=== PATIENT | male | born 1995 | race Caucasian/White ===

== ENCOUNTER → 2018-02-25 | Outpatient (CLI) | payer OTHER ==
[~2018-02-25] VITALS: Ht 177.8 cm; Wt 95.5 kg
[~2018-02-25] MED LIST: NEXIUM 24HR20 M2 PO; PROAIR HFA0.09 MG/AC IH
[2018-02-25 10:00] VITALS: BP 155/58
== END ==
LOC: AMSURD 09:45
DX: R00.2 Palpitations (principal)

== ENCOUNTER → 2020-02-22 | Outpatient (CLI) | payer SELFPAY ==
[2018-02-25 10:00] VITALS: BP 155/58
== END ==
LOC: LAB 09:50
DX: M79.10 Myalgia, unspecified site (principal); R51 Headache; R11.0 Nausea; R19.7 Diarrhea, unspecified; Z20.828 Contact with and (suspected) exposure to other viral communicable diseases

== ENCOUNTER → 2020-02-25 | Outpatient (CLI) | payer SELFPAY ==
[2018-02-25 10:00] VITALS: BP 155/58
== END ==
LOC: LAB 15:47
DX: R19.7 Diarrhea, unspecified (principal)

== ENCOUNTER → 2023-11-11 | Outpatient (CLI) | payer BC ==
[2023-11-11 11:01] LABS: ALBUMIN 4.7 g/dL (3.5-5.0); SODIUM 139 mmol/L (136-145)
[2023-11-11 11:03] LABS: CALCIUM 10.6 mg/dL (8.3-10.5)
[2023-11-11 11:04] LABS: GLUCOSE 119 mg/dL (75-110); TOTAL PROTEIN 8.1 g/dL (6.4-8.3)
[2023-11-11 11:05] LABS: CARBON DIOXIDE 26 mmol/L (22-29)
[2023-11-11 11:06] LABS: TOTAL BILIRUBIN 0.6 mg/dL (0.2-1.2)
[2023-11-11 11:09] LABS: AST-SGOT 190 U/L (5-34)
[2023-11-11 11:10] LABS: ALT/SGPT 204 U/L (0-55)
[2023-11-11 11:29] LABS: TROPONIN-I < 0.030 ng/mL (0.00-0.033)
[2023-11-11 11:41] LABS: BASO # 0.07 K/mm3 (0.02-0.10); EOS # 0.47 K/mm3 (0.04-0.40); HEMATOCRIT 47.1 % (42.0-52.0); HEMOGLOBIN 15.2 g/dL (13.5-18.0); LYMPH# 3.21 K/mm3 (1.50-4.00); MEAN CELL VOLUME 95 fl (78-100); MEAN CORPUSCULAR HEMOGLOBIN 31 pg (27-31); MEAN CORPUSCULAR HGB CONC 32 g/dL (33-37); MEAN PLATELET VOLUME 10.6 fl (7.4-10.4); MONO # 1.09 K/mm3 (0.20-0.80); NEU # 6.83 K/mm3 (1.40-6.50); PLATELET COUNT 356 K/mm3 (130-400); RED BLOOD COUNT 4.96 M/mm3 (4.20-5.60); RED CELL DISTRIBUTION WIDTH 13.6 % (11.5-14.5); WHITE BLOOD COUNT 11.8 K/mm3 (4.8-10.8)
[2023-12-16 16:35] LABS: DIRECT BILIRUBIN 0.3 mg/dL (0.0-0.5)
== END ==
LOC: LAB 10:31
PROVIDERS: Nurse Practitioner Family
DX: Z13.1 Encounter for screening for diabetes mellitus (principal); R00.2 Palpitations; R74.01 Elevation of levels of liver transaminase levels

== ENCOUNTER → 2023-12-11 | Outpatient (CLI) | payer BC | LOC: RAD 09:04 | DX: M54.14 Radiculopathy, thoracic region (principal) ==